=== PATIENT | female | born 1995 | race Caucasian/White ===

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

== ENCOUNTER 2020-08-19 02:16 | Inpatient (IN) | payer BC ==
[~2020-08-19 02:16] MED LIST: Bupivacaine 0.25% 10 ML SDV ONE
[2020-08-19] MEDS ORDERED: Nalbuphine 10 MG/1 ML Vial IVPUSH PRN (02:29)
[2020-08-19] MEDS ORDERED: Lidocaine 1% 50 ML MDV INJECT ONE (02:29)
[2020-08-19] MEDS ORDERED: Sodium Chloride 0.9% 10 ML Syringe FLUSH PRN (02:29)
[2020-08-19] MEDS ORDERED: Ondansetron 4 MG/2 ML SDV IVPUSH PRN (02:29)
[2020-08-19] MEDS ORDERED: Oxytocin/Lactated Ringers 10 UNIT/1,000 ML BAG IV SCH ×2 (02:30→12:15)
[2020-08-19] MEDS ORDERED: Ampicillin 2 GM in Sodium Chloride 0.9% 100 ML IV ONE (02:30)
[2020-08-19] MEDS ORDERED: Sodium Chloride 0.9% 100 ML ONE (02:35)
[2020-08-19] MEDS ORDERED: Ampicillin 2 GM AdvVial IV ONE (02:35)
[2020-08-19] MEDS: Lactated Ringers 1,000 ML IV SCH ×3 (02:45→04:11)
[2020-08-19] MEDS ORDERED: diphenhydrAMINE 50 MG/ML SDV IVPUSH PRN (03:14)
[2020-08-19] MEDS ORDERED: ePHEDrine 50 MG/ML SDV IVPUSH PRN (03:14)
[2020-08-19] MEDS: Bupivacaine/fentaNYL/NS 100 ML Bag EPIDUR PRN ×2 (03:27→09:36)
[2020-08-19] MEDS: fentaNYL 100 MCG/2 ML SDV EPIDUR PRN ×2 (03:27→09:14)
--- NOTE | 2020-08-19 04:09 | PCM.PREANE ---
Preanesthetic Assessment - Procedure Proposed Procedure: Labor Epidural - Anesthesia/Transfusion/Family Hx Anesthesia History: Prior Anesthesia Without Reaction Family History of Anesthesia Reaction: No Transfusion History: No Prior Transfusion(s) - Review of Systems General: No Symptoms Pulmonary: No Symptoms Cardiovascular: No Symptoms Gastrointestinal: Abdominal Pain (uterine contractions) Neurological: No Symptoms Other: Reports: None - Physical Assessment Vital Signs: Last Vital Signs Temp 36.7 C 08/19/20 02:29 Pulse 86 08/19/20 02:29 Resp 20 08/19/20 02:29 BP 121/80 08/19/20 02:29 Pulse Ox 99 08/19/20 02:29 Height: 1.73 m Weight: 83.234 kg ASA Class: 2 Mental Status: Alert & Oriented x3 Airway Class: Mallampati = 3 Dentition: Reports: Normal Dentition (Permanent retainer on the bottom.) Thyro-Mental Finger Breadths: 3 Mouth Opening Finger Breadths: 3 ROM/Head Extension: Full Lungs: Clear to Auscultation, Normal Respiratory Effort Cardiovascular: Regular Rate, Regular Rhythm - Lab Values: Laboratory Last Values WBC 11.73 K/mm3 (3.98-10.04) H 08/19/20 02:40 RBC 4.03 M/mm3 (3.98-5.22) 08/19/20 02:40 Hgb 12.4 gm/dl (11.2-15.7) D 08/19/20 02:40 Hct 36.7 % (34.1-44.9) 08/19/20 02:40 MCV 91.1 fl (79.4-94.8) 08/19/20 02:40 MCH 30.8 pg (25.6-32.2) 08/19/20 02:40 MCHC 33.8 g/dl (32.2-35.5) 08/19/20 02:40 RDW Std Deviation 38.9 fL (36.4-46.3) 08/19/20 02:40 Plt Count 171 K/mm3 (182-369) L D 08/19/20 02:40 MPV 12.0 fl (9.4-12.3) 08/19/20 02:40 Neut % (Auto) 77.9 % (34.0-71.1) H 08/19/20 02:40 Lymph % (Auto) 13.9 % (19.3-51.7) L 08/19/20 02:40 [place] % (Auto) 7.3 % (4.7-12.5) 08/19/20 02:40 Eos % (Auto) 0.5 (0.7-5.8) L 08/19/20 02:40 Baso % (Auto) 0.1 % (0.1-1.2) 08/19/20 02:40 Neut # (Auto) 9.13 K/mm3 (1.56-6.13) H 08/19/20 02:40 Lymph # (Auto) 1.63 K/mm3 (1.18-3.74) 08/19/20 02:40 [place] # (Auto) 0.86 K/mm3 (0.24-0.36) H 08/19/20 02:40 Eos # (Auto) 0.06 K/mm3 (0.04-0.36) 08/19/20 02:40 Baso # (Auto) 0.01 K/mm3 (0.01-0.08) 08/19/20 02:40 SARS-CoV-2 RNA (NAVYA) Negative (NEGATIVE) 08/19/20 02:50 Blood Type B POSITIVE 08/19/20 02:40 Gel Antibody Screen Negative 08/19/20 02:40 - Allergies Allergies/Adverse Reactions: Allergies Allergy/AdvReac Type Severity Reaction Status Date / Time No Known Allergies Allergy Verified 08/19/20 02:32 - Acknowledgements Anesthesia Type Planned: Epidural Pt an Appropriate Candidate for the Planned Anesthesia: Yes Alternatives and Risks of Anesthesia Discussed w Pt/Guardian: Yes Pt/Guardian Understands and Agrees with Anesthesia Plan: Yes PreAnesthesia Questionnaire - Past Health History Medical/Surgical History: Denies Medical/Surgical History HEENT History: Reports: Impaired Vision Other HEENT History: wears eyeglasses. 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: Psychiatric History: Reports: Anxiety - Past Surgical History HEENT Surgical History: Reports: Oral Surgery Other HEENT Surgeries/Procedures: [place] teeth GI Surgical History: Reports: Colonoscopy, EGD - SUBSTANCE USE Tobacco Use Status *Q: Never Tobacco User Recreational Drug Use History: No - HOME MEDS Home Medications: Home Meds Hydrocodone/Acetaminophen [Hydrocodone-Acetamin 5-325 mg] 1 - 2 each PO Q6HR PRN #20 tablet 12/06/16 [Rx] Nitrofurantoin [place]/Macrocryst [Macrobid] 100 mg PO BID #10 cap 12/06/16 [Rx] Ondansetron [Zofran ODT] 4 mg PO Q8H PRN #10 tab.dis 12/11/16 [Rx] - CURRENT (IN HOUSE) MEDS Current Meds: Current Medications Calcium Carbonate/Glycine (Calcium Carbonate 500 Mg Tab.Chew) 1,000 mg PO Q2H PRN PRN Reason: Indigestion Diphenhydramine HCl (Diphenhydramine 50 Mg/Ml Sdv) 25 mg IVPUSH Q6H PRN PRN Reason: pruritis Ephedrine Sulfate (Ephedrine 50 Mg/Ml Sdv) 5 mg IVPUSH ASDIRECTED PRN PRN Reason: Hypotension Fentanyl (Fentanyl 100 Mcg/2 Ml Sdv) 100 mcg EPIDUR Q3H PRN PRN Reason: Pain Last Admin: 08/19/20 03:27 Dose: 100 mcg Documented by: Fentanyl/Bupivacaine HCl (Bupivacaine/Fentanyl/Ns 100 Ml Bag) 100 ml EPIDUR ASDIRECTED PRN PRN Reason: Pain Last Admin: 08/19/20 03:27 Dose: 100 ml Documented by: Ampicillin Sodium 1 gm/ Sodium (Chloride) 100 mls @ 200 mls/hr IV Q4H SHIRA Oxytocin/Lactated Ringer's (Pitocin In Lr 10 Units/1,000 Ml) 10 unit in 1,000 mls @ 500 mls/hr IV .CONTINUOUS SHIRA Lactated Ringer's (Ringers, Lactated) 1,000 mls @ 100 mls/hr IV ASDIRECTED SHIRA Last Admin: 08/19/20 03:25 Dose: 999 mls/hr Documented by: Nalbuphine HCl (Nalbuphine 10 Mg/1 Ml Vial) 10 mg IVPUSH Q2H PRN PRN Reason: Pain Ondansetron HCl (Ondansetron 4 Mg/2 Ml Sdv) 4 mg IVPUSH Q4H PRN PRN Reason: Nausea/Vomiting Sodium Chloride (Sodium Chloride 0.9% 10 Ml Syringe) 10 ml FLUSH ASDIRECTED PRN PRN Reason: Keep Vein Open Discontinued Medications Ampicillin Sodium (Ampicillin 2 Gm Advvial) Confirm Administered Dose 2 gm IV .STK-MED ONE Stop: 08/19/20 02:36 Last Admin: 08/19/20 03:28 Dose: Not Given Documented by: Ampicillin Sodium 2 gm/ Sodium (Chloride) 100 mls @ 200 mls/hr IV ONETIME ONE Stop: 08/19/20 02:59 Last Admin: 08/19/20 02:45 Dose: 200 mls/hr Documented by: Sodium Chloride (Normal Saline) Confirm Administered Dose 100 mls @ as directed .ROUTE .STK-MED ONE Stop: 08/19/20 02:36 Last Admin: 08/19/20 03:28 Dose: Not Given Documented by: Lidocaine HCl (Lidocaine 1% 50 Ml Mdv) 20 ml INJECT ONETIME ONE Stop: 08/19/20 02:30
[2020-08-19] MEDS: Calcium Carbonate 500 MG Tab.Chew PO PRN ×3 (05:44→09:36)
[2020-08-19] MEDS: Ampicillin 1 GM in Sodium Chloride 0.9% 100 ML IV SCH ×2 (06:35→10:18)
--- NOTE | 2020-08-19 06:52 | PCM.LDHP ---
L&D History of Present Illness - General Date of Service: 08/19/20 Admit Problem/Dx: Patient Status Order with Admit Dx/Problem 08/19/20 02:29 Patient Status [ADT] Routine Admission Diagnosis/Problem Admission Diagnosis/Problem Active labor Source of Information: Patient History Limitations: Reports: No Limitations - History of Present Illness Introduction:: Patient is a 24 y/o at 39 4/7 wks who presented early this AM in labor. Now comfortable with epidural in place. Pain Score: 8 - Related Data Allergies/Adverse Reactions: Allergies Allergy/AdvReac Type Severity Reaction Status Date / Time No Known Allergies Allergy Verified 08/19/20 02:32 Home Medications: Home Meds Famotidine [Pepcid] 20 mg PO BEDTIME 08/19/20 [History] Ondansetron [Zofran Odt] 8 mg PO Q8H PRN 08/19/20 [History] No122/Iron/Folic Acid [ Multi Tablet] 1 each PO DAILY 08/19/20 [History] Past Medical History HEENT History: Reports: Impaired Vision Other HEENT History: wears eyeglasses. 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: : 1 Para: 0 Psychiatric History: Reports: Anxiety - Past Surgical History HEENT Surgical History: Reports: Oral Surgery Other HEENT Surgeries/Procedures: [place] teeth GI Surgical History: Reports: Colonoscopy, EGD Social & Family History - Family History Family Medical History: No Pertinent Family History - Tobacco Use Tobacco Use Status *Q: Never Tobacco User - Caffeine Use Caffeine Use: Reports: Soda - Alcohol Use Alcohol Use History: No - Recreational Drug Use Recreational Drug Use: No - Living Situation & Occupation Living situation: Reports: Single, with Significant Other (Boyfriend) Occupation: Employed ([employer]) H&P Review of Systems - Review of Systems: Review Of Systems: See Below General: Reports: No Symptoms Pulmonary: Reports: No Symptoms Cardiovascular: Reports: No Symptoms Gastrointestinal: Reports: No Symptoms Genitourinary: Reports: No Symptoms Musculoskeletal: Reports: No Symptoms Psychiatric: Reports: No Symptoms Neurological: Reports: No Symptoms L&D Exam - Exam Exam: See Below - Vital Signs Vital Signs: Last Vital Signs Temp 36.7 C 08/19/20 02:29 Pulse 86 08/19/20 02:29 Resp 20 08/19/20 02:29 BP 121/80 08/19/20 02:29 Pulse Ox 99 08/19/20 02:29 Weight: 83.234 kg - OB Specific Contraction Intensity: Moderate Movement: Active Heart Tones: Present Heart Rate (FHR) Variability: Moderate (6-25 bmp) Presentation: Vertex - Guerrier Score Guerrier Score Cervix Position: Midposition Guerrier Score Consistency: Soft Guerrier Score Effacement: 51-70% Guerrier Score Dilation: 3-4 cm Guerrier Score 's Station: -1 ,0 Guerrier Score Total: 9 - Exam General: Alert, Oriented, Cooperative Lungs: Clear to Auscultation, Normal Respiratory Effort Cardiovascular: Regular Rate, Regular Rhythm GI/Abdominal Exam: Soft, Non-Tender Genitourinary: Normal external exam Extremities: Normal Inspection Skin: Warm, Dry, Intact - Patient Data Lab Results Last 24 hrs: Laboratory Results - last 24 hr 08/19/20 08/19/20 08/19/20 Range/Units 02:40 02:40 02:50 WBC 11.73 H (3.98-10.04) K/mm3 RBC 4.03 (3.98-5.22) M/mm3 Hgb 12.4 D (11.2-15.7) gm/dl Hct 36.7 (34.1-44.9) % MCV 91.1 (79.4-94.8) fl MCH 30.8 (25.6-32.2) pg MCHC 33.8 (32.2-35.5) g/dl RDW Std Deviation 38.9 (36.4-46.3) fL Plt Count 171 L D (182-369) K/mm3 MPV 12.0 (9.4-12.3) fl Neut % (Auto) 77.9 H (34.0-71.1) % Lymph % (Auto) 13.9 L (19.3-51.7) % [place] % (Auto) 7.3 (4.7-12.5) % Eos % (Auto) 0.5 L (0.7-5.8) Baso % (Auto) 0.1 (0.1-1.2) % Neut # (Auto) 9.13 H (1.56-6.13) K/mm3 Lymph # (Auto) 1.63 (1.18-3.74) K/mm3 [place] # (Auto) 0.86 H (0.24-0.36) K/mm3 Eos # (Auto) 0.06 (0.04-0.36) K/mm3 Baso # (Auto) 0.01 (0.01-0.08) K/mm3 SARS-CoV-2 RNA (NAVYA) Negative (NEGATIVE) Blood Type B POSITIVE Gel Antibody Screen Negative Result Diagrams: 08/19/20 02:40 - Problem List (1) 39 weeks gestation of SNOMED Code(s): 09748338 ICD Code: Z3A.39 - 39 WEEKS GESTATION OF Status: Acute Current Visit: Yes (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 DIRECTED Care 08/19/20 02:29 Active Urinary Catheter Assessment [RC] ASDIRECTED Care 08/19/20 02:29 Active Regular Diet [DIET] Diet 08/19/20 Breakfast Active HEP C VIRUS AB [REF] Stat Lab 08/19/20 02:40 Received PATIENT RETYPE [BBK] Routine Lab 08/19/20 03:55 Ordered RAPID PLASMA REAGIN,RPR [CHEM] Routine Lab 08/19/20 02:40 Received Ampicillin 1 gm Med 08/19/20 06:30 Active Sodium Chloride 0.9% [Normal Saline] 100 ml IV Q4H Bupivacaine/fentaNYL/NS [fentaNYL/Bupivacaine/NS 2 MCG- Med 08/19/20 03:14 Active 0.125% 100 ML] 100 ml EPIDUR ASDIRECTED PRN Calcium Carbonate [Tums] Med 08/19/20 02:29 Active 1,000 mg PO Q2H PRN Lactated Ringers [Ringers, Lactated] 1,000 ml Med 08/19/20 02:30 Active IV ASDIRECTED Nalbuphine [Nubain] Med 08/19/20 02:29 Active 10 mg IVPUSH Q2H PRN Ondansetron [Zofran] Med 08/19/20 02:29 Active 4 mg IVPUSH Q4H PRN Oxytocin/Lactated Ringers [Pitocin in LR 10 Units/1,000 Med 08/19/20 02:30 Active ML] 10 unit in 1,000 ml IV .CONTINUOUS Sodium Chloride 0.9% [Saline Flush] Med 08/19/20 02:29 Active 10 ml FLUSH ASDIRECTED PRN diphenhydrAMINE [Benadryl] Med 08/19/20 03:14 Active 25 mg IVPUSH Q6H PRN ePHEDrine [ePHEDrine sulfate] Med 08/19/20 03:14 Active 5 mg IVPUSH ASDIRECTED PRN fentaNYL [Sublimaze] Med 08/19/20 03:14 Active 100 mcg EPIDUR Q3H PRN Electronic Heart Tones Ext w TOCO [WOMSER] Oth 08/19/20 02:29 Ordered Routine Electronic Heart Tones Internal [WOMSER] Per Unit Oth 08/19/20 02:29 Ordered Routine Peripheral IV Insertion Adult [OM.PC] Routine Oth 08/19/20 02:29 Ordered Resuscitation Status Routine Resus Stat 08/19/20 02:29 Ordered Medication Orders Calcium Carbonate/Glycine (Calcium Carbonate 500 Mg Tab.Chew) 1,000 mg PO Q2H PRN PRN Reason: Indigestion Last Admin: 08/19/20 05:44 Dose: 1,000 mg Documented by: PETECHE Diphenhydramine HCl (Diphenhydramine 50 Mg/Ml Sdv) 25 mg IVPUSH Q6H PRN PRN Reason: pruritis Ephedrine Sulfate (Ephedrine 50 Mg/Ml Sdv) 5 mg IVPUSH ASDIRECTED PRN PRN Reason: Hypotension Fentanyl (Fentanyl 100 Mcg/2 Ml Sdv) 100 mcg EPIDUR Q3H PRN PRN Reason: Pain Last Admin: 08/19/20 03:27 Dose: 100 mcg Documented by: SHANI Fentanyl/Bupivacaine HCl (Bupivacaine/Fentanyl/Ns 100 Ml Bag) 100 ml EPIDUR ASDIRECTED PRN PRN Reason: Pain Last Admin: 08/19/20 03:27 Dose: 100 ml Documented by: SHANI Ampicillin Sodium 1 gm/ Sodium (Chloride) 100 mls @ 200 mls/hr IV Q4H [facility] Last Admin: 08/19/20 06:35 Dose: 200 mls/hr Documented by: SHANI Oxytocin/Lactated Ringer's (Pitocin In Lr 10 Units/1,000 Ml) 10 unit in 1,000 mls @ 500 mls/hr IV .CONTINUOUS [facility] Lactated Ringer's (Ringers, Lactated) 1,000 mls @ 100 mls/hr IV ASDIRECTED [facility] Last Admin: 08/19/20 04:11 Dose: 100 mls/hr Documented by: Infusion: 08/19/20 04:11 Dose: 999 mls/hr Documented by: Admin: 08/19/20 03:25 Dose: 999 mls/hr Documented by: Infusion: 08/19/20 03:25 Dose: 999 mls/hr Documented by: Admin: 08/19/20 02:45 Dose: 999 mls/hr Documented by: SHANI Nalbuphine HCl (Nalbuphine 10 Mg/1 Ml Vial) 10 mg IVPUSH Q2H PRN PRN Reason: Pain Ondansetron HCl (Ondansetron 4 Mg/2 Ml Sdv) 4 mg IVPUSH Q4H PRN PRN Reason: Nausea/Vomiting Sodium Chloride (Sodium Chloride 0.9% 10 Ml Syringe) 10 ml FLUSH ASDIRECTED PRN PRN Reason: Keep Vein Open Assessment/Plan Comment:: * Labs done * Epidural in place * 2nd dose of Ampicillin for GBS positive status given at 0630 * AROM performed * Anticipate
[2020-08-19] MEDS ORDERED: fentaNYL 100 MCG/2 ML SDV ONE (09:08)
--- NOTE | 2020-08-19 09:19 | PCM.SN.2 ---
- Free Text/Narrative Note: 0900 Called to room for break through pain 10/12. Bolus epidural with 2ml fentanyl and 10ml .25% Bupivacaine. VSS out of room at 0915
--- NOTE | 2020-08-19 13:15 | PCM.DEL ---
L & D Note - General Info Date of Service: 08/19/20 - Delivery Note Labor: Spontaneous Delivery Outcome: Livebirth Delivery Method: Spontaneous Vaginal Delivery-Single Delivery Mode: Spontaneous Presentation: Right Occiput Anterior (DELONTE) Nuchal Cord: None Anesthesia Type: Epidural Amniotic Fluid Description: Clear Episiotomy Type: None Laceration: Labial Suture type: Vicryl Suture size: 2-0 Placenta: Intact, Spontaneous Cord: 3 Vessels Estimated Blood Loss: 100 Resuscitation Needed: Yes [place]: Bulb Syringe, Stimulated, Warmed, [place] Used, Warmer Used Delivery Comments (Free Text/Narrative):: Patient found to be complete and began pushing. With maternal pushing effort head delivered from DELONTE presentation. No nuchal cord. With gentle downward traction the shoulders and body delivered. Infant placed on mate rnal abdomen. Cord clamped and cut. Cord blood obtained. Placenta allowed time to separate and expelled intact. Inspection of perineum showed a right labial laceration. This was repaired with a running 2-0 Vicryl - General Info Date of Service: 08/19/20 - Patient Data Vitals - Most Recent: Last Vital Signs Temp 36.7 C 08/19/20 02:29 Pulse 86 08/19/20 02:29 Resp 20 08/19/20 02:29 BP 121/80 08/19/20 02:29 Pulse Ox 99 08/19/20 02:29 Weight - Most Recent: 83.234 kg I&O - Last 24 Hours: Intake & Output 08/18/20 08/19/20 08/19/20 22:59 06:59 14:59 Intake Total 2100 100 Output Total 4000 Balance 2116 -3900 - Exam Urinary Catheter Total Time: 0Days 5Hours - Problem List & Annotations (1) 39 weeks gestation of SNOMED Code(s): 97556549 Code(s): Z3A.39 - 39 WEEKS GESTATION OF Status: Acute Current Visit: Yes (2) GBS carrier SNOMED Code(s): 2808838063682 Code(s): Z22.330 - CARRIER OF GROUP B STREPTOCOCCUS Status: Acute Current Visit: Yes (3) Vaginal delivery SNOMED Code(s): 159574676 Code(s): O80 - ENCOUNTER FOR FULL-TERM UNCOMPLICATED DELIVERY Status: Acute Current Visit: Yes - Problem List Review Problem List Initiated/Reviewed/Updated: Yes - My Orders Last 24 Hours: My Active Orders 08/19/20 02:29 Patient Status [ADT] Routine Activity as Tolerated [RC] PFP Communication Order [RC] ASDIRECTED Notify Provider [RC] PFP Notify Provider [RC] PRN Peripheral IV Care [RC] . DIRECTED Urinary Catheter Assessment [RC] ASDIRECTED Calcium Carbonate [Tums] 1,000 mg PO Q2H PRN Nalbuphine [Nubain] 10 mg IVPUSH Q2H PRN Ondansetron [Zofran] 4 mg IVPUSH Q4H PRN Sodium Chloride 0.9% [Saline Flush] 10 ml FLUSH ASDIRECTED PRN Electronic Heart Tones Ext w TOCO [WOMSER] Routine Electronic Heart Tones Internal [WOMSER] Per Unit Routine Peripheral IV Insertion Adult [OM.PC] Routine Resuscitation Status Routine 08/19/20 02:30 Lactated Ringers [Ringers, Lactated] 1,000 ml IV ASDIRECTED Oxytocin/Lactated Ringers [Pitocin in LR 10 Units/1,000 ML] 10 unit in 1,000 ml IV .CONTINUOUS 08/19/20 02:40 HEP C VIRUS AB [REF] Stat RAPID PLASMA REAGIN,RPR [CHEM] Routine 08/19/20 03:55 PATIENT RETYPE [BBK] Routine 08/19/20 06:30 Ampicillin 1 gm Sodium Chloride 0.9% [Normal Saline] 100 ml IV Q4H 08/19/20 Breakfast Regular Diet [DIET] 08/19/20 12:15 Oxytocin/Lactated Ringers [Pitocin in LR 10 Units/1,000 ML] 10 unit in 1,000 ml IV TITRATE - Assessment Assessment:: PPD#0 - Plan Plan:: * Routine cares * Bottle feeding * Discharge home in 1-2 days
[2020-08-19] MEDS ORDERED: Acetaminophen 325 MG Tab PO PRN (13:53)
[2020-08-19] MEDS: Docusate Sodium 100 MG Cap PO PRN (14:03)
[2020-08-19] MEDS: Ibuprofen 600 MG Tab PO PRN ×2 (14:03→21:55)
[2020-08-19] MEDS: Witch Hazel Medicated Pads 40/Jar TOP PRN (14:03)
[2020-08-19] MEDS: Benzocaine/Menthol 20%-0.5% Spray 56 GM Canister TOP PRN (14:04)
[2020-08-20] MEDS: Ibuprofen 600 MG Tab PO PRN ×3 (04:02→18:38)
--- NOTE | 2020-08-20 07:31 | PCM48HPAN ---
Post Anesthesia Note - EVALUATION WITHIN 48HRS OF ANESTHETIC Vital Signs in Normal Range: Yes Patient Participated in Evaluation: Yes Respiratory Function Stable: Yes Airway Patent: Yes Cardiovascular Function Stable: Yes Hydration Status Stable: Yes Pain Control Satisfactory: Yes Nausea and Vomiting Control Satisfactory: Yes Mental Status Recovered: Yes Vital Signs: Last Vital Signs Temp 98.1 F 08/20/20 05:48 Pulse 67 08/20/20 05:48 Resp 13 08/20/20 05:48 BP 111/78 08/20/20 05:48 Pulse Ox 98 08/20/20 05:48
--- NOTE | 2020-08-20 08:08 | PCM.PNPP ---
- General Info Date of Service: 08/20/20 Functional Status: Reports: Pain Controlled, Tolerating Diet, Ambulating, Urinating - Review of Systems General: Reports: No Symptoms Pulmonary: Reports: No Symptoms Cardiovascular: Reports: No Symptoms Gastrointestinal: Reports: No Symptoms Genitourinary: Reports: No Symptoms Musculoskeletal: Reports: No Symptoms - General Info Date of Service: 08/20/20 - Patient Data Vital Signs - Most Recent: Last Vital Signs Temp 36.7 C 08/20/20 05:48 Pulse 67 08/20/20 05:48 Resp 13 08/20/20 05:48 BP 111/78 08/20/20 05:48 Pulse Ox 98 08/20/20 05:48 Weight - Most Recent: 83.234 kg I&O - Last 24 Hours: Intake & Output 08/19/20 08/20/20 08/20/20 22:59 06:59 14:59 Output Total 350 Balance -350 Lab Results - Last 24 Hours: Laboratory Results - last 24 hr 08/19/20 Range/Units 02:40 RPR Non-reactive (NONREACTIVE) Med Orders - Current: Current Medications Acetaminophen (Acetaminophen 325 Mg Tab) 650 mg PO Q4H PRN PRN Reason: mild pain or fever Benzocaine/Menthol (Benzocaine/Menthol 20%-0.5% [place] 56 Gm Canister) 0 gm TOP ASDIRECTED PRN PRN Reason: Perineal Comfort Measure Last Admin: 08/19/20 14:04 Dose: 1 can Documented by: Docusate Sodium (Docusate Sodium 100 Mg Cap) 100 mg PO BID PRN PRN Reason: Constipation Last Admin: 08/19/20 14:03 Dose: 100 mg Documented by: Ibuprofen (Ibuprofen 600 Mg Tab) 600 mg PO Q6H PRN PRN Reason: Mild pain or fever Last Admin: 08/20/20 04:02 Dose: 600 mg Documented by: Celina Mclaughlin (Witch Lissette Medicated Pads 40/Jar) 1 pad TOP ASDIRECTED PRN PRN Reason: Perineal Comfort Measure Last Admin: 08/19/20 14:03 Dose: 1 jar Documented by: Discontinued Medications Ampicillin Sodium (Ampicillin 2 Gm Advvial) Confirm Administered Dose 2 gm IV .STK-MED ONE Stop: 08/19/20 02:36 Last Admin: 08/19/20 03:28 Dose: Not Given Documented by: Bupivacaine HCl (Bupivacaine 0.25% 10 Ml Sdv) 10 ml .ROUTE .STK-MED ONE Stop: 08/19/20 00:01 Bupivacaine HCl (Bupivacaine 0.25% 10 Ml Sdv) 10 ml .ROUTE .STK-MED ONE Stop: 08/19/20 00:01 Calcium Carbonate/Glycine (Calcium Carbonate 500 Mg Tab.Chew) 1,000 mg PO Q2H PRN PRN Reason: Indigestion Last Admin: 08/19/20 09:36 Dose: 1,000 mg Documented by: Diphenhydramine HCl (Diphenhydramine 50 Mg/Ml Sdv) 25 mg IVPUSH Q6H PRN PRN Reason: pruritis Ephedrine Sulfate (Ephedrine 50 Mg/Ml Sdv) 5 mg IVPUSH ASDIRECTED PRN PRN Reason: Hypotension Fentanyl (Fentanyl 100 Mcg/2 Ml Sdv) 100 mcg EPIDUR Q3H PRN PRN Reason: Pain Last Admin: 08/19/20 09:14 Dose: 100 mcg Documented by: Fentanyl (Fentanyl 100 Mcg/2 Ml Sdv) Confirm Administered Dose 100 mcg .ROUTE .STK-MED ONE Stop: 08/19/20 09:09 Last Admin: 08/19/20 10:31 Dose: Not Given Documented by: Fentanyl/Bupivacaine HCl (Bupivacaine/Fentanyl/Ns 100 Ml Bag) 100 ml EPIDUR ASDIRECTED PRN PRN Reason: Pain Last Admin: 08/19/20 09:36 Dose: 100 ml Documented by: Ampicillin Sodium 2 gm/ Sodium (Chloride) 100 mls @ 200 mls/hr IV ONETIME ONE Stop: 08/19/20 02:59 Last Admin: 08/19/20 02:45 Dose: 200 mls/hr Documented by: Ampicillin Sodium 1 gm/ Sodium (Chloride) 100 mls @ 200 mls/hr IV Q4H [facility]IRA Last Admin: 08/19/20 10:18 Dose: 200 mls/hr Documented by: Oxytocin/Lactated Ringer's (Pitocin In Lr 10 Units/1,000 Ml) 10 unit in 1,000 mls @ 500 mls/hr IV .CONTINUOUS [facility]IRA Lactated Ringer's (Ringers, Lactated) 1,000 mls @ 100 mls/hr IV ASDIRECTED [facility] Last Admin: 08/19/20 04:11 Dose: 100 mls/hr Documented by: Sodium Chloride (Normal Saline) Confirm Administered Dose 100 mls @ as directed .ROUTE .STK-MED ONE Stop: 08/19/20 02:36 Last Admin: 08/19/20 03:28 Dose: Not Given Documented by: Oxytocin/Lactated Ringer's (Pitocin In Lr 10 Units/1,000 Ml) 10 unit in 1,000 mls @ 12 mls/hr IV TITRATE SHIRA; Protocol Last Titration: 08/19/20 12:55 Dose: 999 munits/min, 5,994 mls/hr Documented by: Lidocaine HCl (Lidocaine 1% 50 Ml Mdv) 20 ml INJECT ONETIME ONE Stop: 08/19/20 02:30 Nalbuphine HCl (Nalbuphine 10 Mg/1 Ml Vial) 10 mg IVPUSH Q2H PRN PRN Reason: Pain Ondansetron HCl (Ondansetron 4 Mg/2 Ml Sdv) 4 mg IVPUSH Q4H PRN PRN Reason: Nausea/Vomiting Last Admin: 08/19/20 10:18 Dose: 4 mg Documented by: Sodium Chloride (Sodium Chloride 0.9% 10 Ml Syringe) 10 ml FLUSH ASDIRECTED PRN PRN Reason: Keep Vein Open - Infant Interaction Disposition, : [place] in Room with Family Infant Interaction: Holding Infant Feeding: Bottle Fed Support Person: - Recovery Exam Fundal Tone: Firm Fundal Level: 1 Fingerbreadths Below Umbilicus Fundal Placement: Midline Lochia Amount: Small Lochia Color: Rubra/Red Perineum Description: Other (see below) Other Perinuem Description: 1st degree labia repaired Episiotomy/Laceration: Approximated Bladder Status: Voiding Urinary Elimination: Voided - Exam General: Alert, Oriented, Cooperative GI/Abdominal Exam: Soft, Non-Tender - Problem List & Annotations (1) 39 weeks gestation of SNOMED Code(s): 87171645 Code(s): Z3A.39 - 39 WEEKS GESTATION OF Status: Acute Current Visit: Yes (2) GBS carrier SNOMED Code(s): 7073879576403 Code(s): Z22.330 - CARRIER OF GROUP B STREPTOCOCCUS Status: Acute Current Visit: Yes (3) Vaginal delivery SNOMED Code(s): 587949902 Code(s): O80 - ENCOUNTER FOR FULL-TERM UNCOMPLICATED DELIVERY Status: Acute Current Visit: Yes - Problem List Review Problem List Initiated/Reviewed/Updated: Yes - My Orders Last 24 Hours: My Active Orders 08/19/20 13:53 Acetaminophen [TylenoL] 650 mg PO Q4H PRN Benzocaine/Menthol [Dermoplast Pain Relief Pelican] See Dose Instructions TOP ASDIRECTED PRN Docusate Sodium [Colace] 100 mg PO BID PRN Ibuprofen [Motrin] 600 mg PO Q6H PRN witch Lissette [Tucks] 1 pad TOP ASDIRECTED PRN Heat Therapy [OM.PC] PRN 08/19/20 13:53 Activity as Tolerated [RC] PER UNIT ROUTINE Vital Signs [RC] ,,, Assess Lochia [WOMSER] Per Unit Routine Assess Uterine Involution [WOMSER] Per Unit Routine Breast Pump [WOMSER] Per Unit Routine Ice Therapy [OM.PC] Per Unit Routine Perineal Care [OM.PC] Per Unit Routine Peripheral IV Discontinue [OM.PC] Routine Sitz Bath [OM.PC] Per Unit Routine 08/19/20 Dinner Regular Diet [DIET] 08/20/20 13:53 Heat Therapy [OM.PC] PRN - Assessment Assessment:: PPD#1 - Plan Plan:: * Routine cares * Bottle feeding * Discharge home tomorrow
[2020-08-20] MEDS: Witch Hazel Medicated Pads 40/Jar TOP PRN (10:50)
[2020-08-21] MEDS: Ibuprofen 600 MG Tab PO PRN ×2 (02:15→10:28)
--- NOTE | 2020-08-21 08:05 | PCM.DCSUM1 ---
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 Progressed well to complete dilation. Underwent an uncomplicated . See delivery note. did well and was discharged home on PPD#2 - Patient Instructions Diet: Regular Diet as Tolerated Activity: As Tolerated Activity, Other: Pelvic rest for 6 weeks Driving: May Drive Today Showering/Bathing: May Shower Showering/Bathing, Other: May Bathe Notify Provider of: Fever, Increased Pain, Swelling and Redness, Drainage, Nausea and/or Vomiting - Discharge Plan *PRESCRIPTION DRUG MONITORING PROGRAM REVIEWED*: No *COPY OF PRESCRIPTION DRUG MONITORING REPORT IN PATIENT [facility]: No Home Medications: Home Meds No122/Iron/Folic Acid [ Multi Tablet] 1 each PO DAILY 08/19/20 [History] Docusate Sodium [Colace] 100 mg PO BID PRN cap 08/20/20 [Rx] Ibuprofen [Motrin] 600 mg PO Q6H PRN tablet 08/20/20 [Rx] Referrals: Roselyn Haley MD [Primary Care Provider] - (3 weeks for check ) - Discharge Summary/Plan Comment DC Time >30 min.: No - Patient Data Vitals - Most Recent: Last Vital Signs Temp 36.6 C 08/21/20 03:06 Pulse 71 08/21/20 03:06 Resp 14 08/21/20 03:06 BP 117/72 08/21/20 03:06 Pulse Ox 97 08/21/20 03:06 Weight - Most Recent: 83.234 kg I&O - Last 24 hours: Intake & Output 08/20/20 08/21/20 08/21/20 22:59 06:59 14:59 Intake Total 720 Balance 720 Med Orders - Current: Current Medications Acetaminophen (Acetaminophen 325 Mg Tab) 650 mg PO Q4H PRN PRN Reason: mild pain or fever Benzocaine/Menthol (Benzocaine/Menthol 20%-0.5% Lawrence 56 Gm Canister) 0 gm TOP ASDIRECTED PRN PRN Reason: Perineal Comfort Measure Last Admin: 08/19/20 14:04 Dose: 1 can Documented by: Docusate Sodium (Docusate Sodium 100 Mg Cap) 100 mg PO BID PRN PRN Reason: Constipation Last Admin: 08/19/20 14:03 Dose: 100 mg Documented by: Ibuprofen (Ibuprofen 600 Mg Tab) 600 mg PO Q6H PRN PRN Reason: Mild pain or fever Last Admin: 08/21/20 02:15 Dose: 600 mg Documented by: Celina Mclaughlin (Celina Mclaughlin Medicated Pads 40/Jar) 1 pad TOP ASDIRECTED PRN PRN Reason: Perineal Comfort Measure Last Admin: 08/20/20 10:50 Dose: 1 jar Documented by: Discontinued Medications Ampicillin Sodium (Ampicillin 2 Gm Advvial) Confirm Administered Dose 2 gm IV .STK-MED ONE Stop: 08/19/20 02:36 Last Admin: 08/19/20 03:28 Dose: Not Given Documented by: Bupivacaine HCl (Bupivacaine 0.25% 10 Ml Sdv) 10 ml .ROUTE .STK-MED ONE Stop: 08/19/20 00:01 Bupivacaine HCl (Bupivacaine 0.25% 10 Ml Sdv) 10 ml .ROUTE .STK-MED ONE Stop: 08/19/20 00:01 Calcium Carbonate/Glycine (Calcium Carbonate 500 Mg Tab.Chew) 1,000 mg PO Q2H PRN PRN Reason: Indigestion Last Admin: 08/19/20 09:36 Dose: 1,000 mg Documented by: Diphenhydramine HCl (Diphenhydramine 50 Mg/Ml Sdv) 25 mg IVPUSH Q6H PRN PRN Reason: pruritis Ephedrine Sulfate (Ephedrine 50 Mg/Ml Sdv) 5 mg IVPUSH ASDIRECTED PRN PRN Reason: Hypotension Fentanyl (Fentanyl 100 Mcg/2 Ml Sdv) 100 mcg EPIDUR Q3H PRN PRN Reason: Pain Last Admin: 08/19/20 09:14 Dose: 100 mcg Documented by: Fentanyl (Fentanyl 100 Mcg/2 Ml Sdv) Confirm Administered Dose 100 mcg .ROUTE .STK-MED ONE Stop: 08/19/20 09:09 Last Admin: 08/19/20 10:31 Dose: Not Given Documented by: Fentanyl/Bupivacaine HCl (Bupivacaine/Fentanyl/Ns 100 Ml Bag) 100 ml EPIDUR ASDIRECTED PRN PRN Reason: Pain Last Admin: 08/19/20 09:36 Dose: 100 ml Documented by: Ampicillin Sodium 2 gm/ Sodium (Chloride) 100 mls @ 200 mls/hr IV ONETIME ONE Stop: 08/19/20 02:59 Last Admin: 08/19/20 02:45 Dose: 200 mls/hr Documented by: Ampicillin Sodium 1 gm/ Sodium (Chloride) 100 mls @ 200 mls/hr IV Q4H SHIRA Last Admin: 08/19/20 10:18 Dose: 200 mls/hr Documented by: Oxytocin/Lactated Ringer's (Pitocin In Lr 10 Units/1,000 Ml) 10 unit in 1,000 mls @ 500 mls/hr IV .CONTINUOUS SHIRA Lactated Ringer's (Ringers, Lactated) 1,000 mls @ 100 mls/hr IV ASDIRECTED SHIRA Last Admin: 08/19/20 04:11 Dose: 100 mls/hr Documented by: Sodium Chloride (Normal Saline) Confirm Administered Dose 100 mls @ as directed .ROUTE .STK-MED ONE Stop: 08/19/20 02:36 Last Admin: 08/19/20 03:28 Dose: Not Given Documented by: Oxytocin/Lactated Ringer's (Pitocin In Lr 10 Units/1,000 Ml) 10 unit in 1,000 mls @ 12 mls/hr IV TITRATE SHIRA; Protocol Last Titration: 08/19/20 12:55 Dose: 999 munits/min, 5,994 mls/hr Documented by: Lidocaine HCl (Lidocaine 1% 50 Ml Mdv) 20 ml INJECT ONETIME ONE Stop: 08/19/20 02:30 Last Admin: 08/20/20 14:38 Dose: Not Given Documented by: Nalbuphine HCl (Nalbuphine 10 Mg/1 Ml Vial) 10 mg IVPUSH Q2H PRN PRN Reason: Pain Ondansetron HCl (Ondansetron 4 Mg/2 Ml Sdv) 4 mg IVPUSH Q4H PRN PRN Reason: Nausea/Vomiting Last Admin: 08/19/20 10:18 Dose: 4 mg Documented by: Sodium Chloride (Sodium Chloride 0.9% 10 Ml Syringe) 10 ml FLUSH ASDIRECTED PRN PRN Reason: Keep Vein Open
[2020-08-21] MEDS: Docusate Sodium 100 MG Cap PO PRN (08:19)
[2020-08-21 08:28] VITALS: BP 119/76; PULSE 65
[2020-08-21] MEDS: Benzocaine/Menthol 20%-0.5% Spray 56 GM Canister TOP PRN (10:29)
[2020-08-21] MEDS: Witch Hazel Medicated Pads 40/Jar TOP PRN (15:38)
== END 2020-08-21 15:24 | disposition home or self-care (01) | DRG 560 ==
LOC: JD.OBCHECK 02:16 → JD.OB 02:23 → JD.OBCHECK 02:29 → JD.OB 02:53 → OBSVTOIN 12:55 → JD.OB 12:56
PROVIDERS: ADMIT Obstetrics & Gynecology; ATTEND Obstetrics & Gynecology
PROC: 10E0XZZ Delivery of Products of Conception, External Approach (ICD-10-PCS; principal; 2020-08-19)
PROC: 10907ZC Drainage of Amniotic Fluid, Therapeutic from Products of Conception, Via Natural or Artificial Opening (ICD-10-PCS; 2020-08-19)
PROC: 3E0R3BZ Introduction of Anesthetic Agent into Spinal Canal, Percutaneous Approach (ICD-10-PCS; 2020-08-19)
PROC: 00HU33Z Insertion of Infusion Device into Spinal Canal, Percutaneous Approach (ICD-10-PCS; 2020-08-19)
DX: O99.824 Streptococcus B carrier state complicating childbirth (principal); Z3A.38 38 weeks gestation of pregnancy; Z37.0 Single live birth; Z20.822 Contact with and (suspected) exposure to COVID-19
CPT/HCPCS: 01967; 36415; 51702; 59025; 59409; 85025; 86592; 86803; 86850; 86900; 86901; A9270-GY; J0290; J2405; J2590; J3010; J3490; J7120; U0002

== ENCOUNTER 2025-01-10 11:19 | Emergency (ER) | payer BC ==
[2025-01-10 13:02] LABS: BASOPHILS ABSOLUTE AUTO 0.1 K/mm3 (0.0-0.2); BASOPHILS PERCENT AUTO 0.7 % (0.0-1.0); EOSINOPHILS ABSOLUTE AUTO 0.1 K/mm3 (0.0-0.4); EOSINOPHILS PERCENT AUTO 0.7 % (0.0-6.0); IMMATURE GRAN ABSOLUTE AUTO 0.03 K/mm3 (0.00-0.05); IMMATURE GRAN PERCENT AUTO 0.3 % (0.0-0.4); LYMPHOCYTES ABSOLUTE AUTO 2.1 K/mm3 (1.0-4.8); LYMPHOCYTES PERCENT AUTO 21.1 % (24.0-44.0); MEAN PLATELET VOLUME 9.6 fl (9.4-12.3); MONOCYTES ABSOLUTE AUTO 0.6 K/mm3 (0.0-0.8); MONOCYTES PERCENT AUTO 6.0 % (0.0-8.0); NEUTROPHILS ABSOLUTE AUTO 6.9 K/mm3 (1.8-7.7); NEUTROPHILS PERCENT AUTO 71.2 % (41.0-71.0); NRBC ABSOLUTE 0.00 (0.00-0.02); NRBC PERCENT 0.0 % (0.0-0.2); PLATELET COUNT,PLT 275 K/mm3 (150-400); RED BLOOD CELL COUNT 4.53 M/mm3 (4.10-5.30); WHITE BLOOD CELL COUNT,WBC 9.74 K/mm3 (3.9-11.3)
[2025-01-10 13:19] LABS: BUPRENORPHINE SCREEN,URINE NEGATIVE (CUTOFF=10); METHADONE SCREEN, URINE NEGATIVE (CUTOFF=200); METHAMPHETAMINES SCREEN, URINE NEGATIVE (CUTOFF=500); OXYCODONE SCREEN,URINE NEGATIVE (CUT0FF=100); THC SCREEN,URINE 20 NG/ML PRESUMPTIVE POSITIVE (CUTOFF=50)
[2025-01-10 13:20] LABS: AMPHETAMINES SCREEN, URINE NEGATIVE (CUTOFF=500)
[2025-01-10] MEDS: Sodium Chloride 0.9% 10 ML Syringe FLUSH PRN (13:23)
[2025-01-10 13:24] LABS: A/G RATIO 1.3 (1-2); ALANINE AMINOTRANSFERASE,ALT 49.0 U/L (14-59); ASPARTATE AMNIOTRANSFERASE,AST 40.0 U/L (15-37); BILIRUBIN TOTAL 0.7 mg/dL (0.2-1.0); BLOOD UREA NITROGEN,BUN 10.0 mg/dL (7-18); CARBON DIOXIDE,CO2 25.0 mEq/L (21-32); CHLORIDE,CL 105.0 mEq/L (98-107); CREATININE 0.7 mg/dL (0.55-1.02); EST CRCL DRUG DOSING (CG) 121.78 mL/min; ESTIMATED GFR 121.0 mL/min (>60); ETHANOL BLOOD MEDICAL 0.13 gm% (0.00); GLUCOSE RANDOM 78.0 mg/dL (70-99); POTASSIUM,K 3.6 mEq/L (3.5-5.1); PROTEIN TOTAL,TP 7.7 g/dl (6.4-8.2); SODIUM,NA 143.0 mEq/L (136-145)
[2025-01-10] MEDS: LORazepam 2 MG/ML SDV IVPUSH ONE (15:09)
[2025-01-10 16:18] VITALS: BP 123/89; PULSE 84
== END 2025-01-10 15:20 | disposition home or self-care (01) ==
LOC: JD.ED 11:19
DX: F10.10 Alcohol abuse, uncomplicated (principal); F17.200 Nicotine dependence, unspecified, uncomplicated; Z86.16 Personal history of COVID-19; Z79.899 Other long term (current) drug therapy; Y90.0 Blood alcohol level of less than 20 mg/100 ml
CPT/HCPCS: 36415; 80053; 80306; 80307; 85025; 96374; 99284; A9270; J2060; J7030